=== PATIENT | male | born 2000 | race Caucasian/White ===

== ENCOUNTER 2023-02-21 22:43 | Emergency (ER) | payer OTHER, SELFPAY ==
[2023-02-21 23:00] VITALS: BP 120/56; PULSE 58; RESP 18; TEMP 37; O2SAT 98; BMI 25.1
--- NOTE | 2023-02-21 23:26 | ED.GENADULT ---
HPI - General Adult General Chief complaint: Dizziness Stated complaint: Lightheaded, dizzy, lethargic Time Seen by Provider: 02/21/23 23:12 Source: patient Mode of arrival: Ambulatory Limitations: no limitations History of Present Illness HPI narrative: Patient is a 22-year-old male who is here for evaluation of an episode that occurred earlier this evening. He stated that he had a fairly sudden onset of feeling lightheaded and dizzy. No chest pain or palpitations. Events lasted a little over 1 hour. He now states he feels better but not completely resolved. He is never had anything like this in the past. He did hit his head earlier in the day while at work but did not pass out did not think much of the event until this evening. Review of Systems Constitutional Constitutional: Reports system reviewed and no additional complaints, except as documented Eyes Eyes: Reports system reviewed and no additional complaints, except as documented ENT Ears, Nose, Mouth, and Throat: Reports system reviewed and no additional complaints, except as documented Cardiovascular Cardiovascular: Reports system reviewed and no additional complaints, except as documented Respiratory Respiratory: Reports system reviewed and no additional complaints, except as documented Integumentary/Breasts Skin/Breast: Reports system reviewed and no additional complaints, except as documented Neurologic Neurologic: Reports system reviewed and no additional complaints, except as documented Hematologic/Lymphatic On Anticoagulants: No Patient History Social History Smoking Status: Never smoker Smoking Status: Never smoker alcohol intake frequency: a few times a month Substance Use Type: does not use Exam Initial Vital Signs Initial Vital Signs: Vital Signs Temperature 98.6 F 02/21/23 23:00 Pulse Rate 58 L 02/21/23 23:00 Respiratory Rate 18 02/21/23 23:00 Blood Pressure 120/56 L 02/21/23 23:00 Pulse Oximetry 98 02/21/23 23:00 Oxygen Delivery Method Room Air 02/21/23 23:00 Const General: cooperative, comfortable, well groomed and No ill appearing HENMT Head: normal to inspection and normocephalic Resp Effort & Inspection: normal respiratory effort Auscultation: clear to auscultation bilaterally Cardio Rate: regular rate Rhythm: regular rhythm GI Inspection: normal to inspection Neuro General: patient alert, patient awake, patient oriented x3 and moves all extremities Cognition: normal cognition Speech: speech normal Extrem General: normal to inspection and capillary refill normal Course Orders Ordered: ED Orders 02/21/23 23:12 EKG-12 Lead Stat 02/21/23 23:40 Basic Metabolic Panel Stat Complete Blood Count AUTO DIFF Stat Vital Signs Vital signs: Vital Signs - 8 hr 02/21/23 23:00 02/22/23 00:05 Temperature 98.6 F Pulse Rate 58 L 61 Respiratory Rate 18 16 Blood Pressure 120/56 L 117/56 L Pulse Oximetry 98 99 Oxygen Delivery Method Room Air Room Air Medical Decision Making Lab Data Lab results reviewed: Yes I reviewed the patient's lab results. 02/21/23 23:40 02/21/23 23:40 Labs: Lab Results 02/21/23 02/21/23 Range/Units 23:40 23:40 WBC 6.3 (4.5-11.0) X10^3/uL RBC 4.46 L (4.5-5.9) X10^6/uL Hgb 13.8 (13.5-17.5) g/dL Hct 39.7 L (41-53) % MCV 89.1 (80-100) fL MCH 30.9 (26-34) PG MCHC 34.7 (30-36) % RDW 12.9 (11.6-14.8) % Plt Count 219 (150-400) X10^3/uL Neut % (Auto) 52.3 (50-75) % Lymph % (Auto) 34.7 (25-40) % [place] % (Auto) 9.3 (3-14) % Eos % (Auto) 2.5 (2-4) % Baso % (Auto) 1.2 (0-2) % Neut # (Auto) 3300 (4734-2264) /uL Lymph # (Auto) 2200 (4131-6557) /uL [place] # (Auto) 600 (0-900) /uL Eos # (Auto) 200 (0-450) /uL Baso # (Auto) 100 (0-100) /uL Sodium 139 (137-145) mmol/L Potassium 3.8 (3.4-5.1) mmol/L Chloride 106 (98-107) mmol/L Carbon Dioxide 25 (22-32) mmol/L BUN 17 (9-20) mg/dL Creatinine 0.68 (0.66-1.25) mg/dL Estimated GFR > 60 (>60) mL/min BUN/Creatinine Ratio 25.0 H (6-22) Glucose 113 H (70-100) mg/dL Calcium 8.9 (8.4-10.2) mg/dL ECG Data Attestation: I personally reviewed and interpreted this ECG as follows: Interpretation: Sinus bradycardia Ventricular rate of 49 Normal axis Normal QRS Normal QTC No ST T wave changes MDM Narrative Medical decision making narrative: Low suspicion for ACS, TIA, CVA, his electrolytes are unremarkable. Patient is bradycardic on his EKG however he is young and active and athletic. Potentially could have had an arrhythmia however is in sinus rhythm here in the ER. Patient can be safely discharged home without further workup here in the emergency department. He was advised to make sure that he increases his fluid intake. He was advised that if his symptoms return or he develops new symptoms that he needs to return to the emergency department for further evaluation. Discharge Plan Departure Patient Disposition: Home Clinical Impression: Lightheadedness Instructions: DI for Dizziness-Nonvertigo Activity Restrictions/Additional Instructions: Recommend that you increase your fluid intake. Contact your medical department tomorrow for a follow-up. Return to the emergency department for new or worsening symptoms. Referrals: ProviderHonorio [Primary Care Provider] - Stand Alone Forms: Patient Portal/API, Work Release Note
[2023-02-21 23:58] LABS: Add Manual Diff / Slide Review NO; Basophils Absolute Auto 100 /uL (0-100); Basophils Percent Auto 1.2 % (0-2); Eosinophils Absolute Auto 200 /uL (0-450); Eosinophils Percent Auto 2.5 % (2-4); Hematocrit 39.7 % (41-53); Hemoglobin 13.8 g/dL (13.5-17.5); Lymphocytes Absolute Auto 2200 /uL (1100-4500); Lymphocytes Percent Auto 34.7 % (25-40); Mean Corpuscular HGB Conc 34.7 % (30-36); Mean Corpuscular Hemoglobin 30.9 PG (26-34); Mean Corpuscular Volume 89.1 fL (80-100); Monocytes Absolute Auto 600 /uL (0-900); Monocytes Percent Auto 9.3 % (3-14); Neutrophils Absolute Auto 3300 /uL (1500-7000); Neutrophils Percent Auto 52.3 % (50-75); Platelet Count 219 X10^3/uL (150-400); Red Blood Cell Count 4.46 X10^6/uL (4.5-5.9); Red Cell Distribution Width 12.9 % (11.6-14.8); White Blood Cell Count 6.3 X10^3/uL (4.5-11.0)
[2023-02-22 00:05] VITALS: BP 117/56; PULSE 61; RESP 16; O2SAT 99
[2023-02-22 00:07] LABS: Blood Urea Nitrogen 17 mg/dL (9-20); Calcium 8.9 mg/dL (8.4-10.2); Carbon Dioxide 25 mmol/L (22-32); Chloride 106 mmol/L (98-107); Estimated Glomerular Filt Rate > 60 mL/min (>60); Glucose 113 mg/dL (70-100); HEMOLYSIS < 15 (0-50); Potassium 3.8 mmol/L (3.4-5.1); Sodium 139 mmol/L (137-145)
== END 2023-02-22 00:26 | disposition home or self-care (01) ==
PROVIDERS: Emergency Provider Emergency Medicine
DX: R42 Dizziness and giddiness (principal); R00.1 Bradycardia, unspecified
CPT/HCPCS: 36415; 80048; 85025; 93005; 99281; 99284